=== PATIENT | male | born 2000 | race Caucasian/White ===

== ENCOUNTER 2025-05-21 19:58 | Emergency (ER) | payer BC, OTHER ==
[~2025-05-21] VITALS: Ht 177.8 cm; Wt 70.3 kg
[2025-05-21 21:00] VITALS: BP 133/70; O2SAT 97
[2025-05-21] MEDS ORDERED: ACETAMINOPHEN 325 MG TABLET ONE (22:23)
[2025-05-21 22:26] VITALS: TEMP 98.5
[2025-05-21] MEDS: ACETAMINOPHEN 325 MG TABLET PO ONE (22:26)
[2025-05-21] MEDS ORDERED: AMOX-430 PO (23:14)
[2025-05-21] MEDS ORDERED: AMOX/CLAVULANATE 875 MG TABLET ONE (23:20)
[2025-05-21] MEDS ORDERED: TDAP [DIPH/PERTUSSIS/TET] 0.5 ML VIAL IM ONE (23:20)
[2025-05-21] MEDS: AMOX/CLAVULANATE 875 MG TABLET PO ONE (23:24)
[2025-05-21] MEDS: BACI/NEOM/POLY B OINT PKT 1 UDPKT PACKET TP ONE (23:24)
[2025-05-21] MEDS: TDAP [DIPH/PERTUSSIS/TET] 0.5 ML VIAL IM ONE (23:24)
== END 2025-05-21 23:34 | disposition home or self-care (01) ==
LOC: ER 20:03
DX: S91.331A Puncture wound without foreign body, right foot, initial encounter (principal); S61.431A Puncture wound without foreign body of right hand, initial encounter; Z60.2 Problems related to living alone; W54.0XXA Bitten by dog, initial encounter; Y93.89 Activity, other specified; Y92.89 Other specified places as the place of occurrence of the external cause; Y99.8 Other external cause status
CPT/HCPCS: 73130-TC; 73630-TC; 90715